=== PATIENT | female | born 1980 | race Caucasian/White ===

== ENCOUNTER 2023-02-13 07:44 | Day surgery (SDC) | payer MEDICAID ==
[~2023-02-13] VITALS: Ht 157.5 cm; Wt 64.9 kg
[2023-02-13 08:16] LABS: HCG,QUAL RESULT NEGATIVE (NEGATIVE)
[2023-02-13] MEDS ORDERED: MEPERIDINE 100 MG INJ. 100 MG/ML VIAL ONE (08:19)
[2023-02-13] MEDS ORDERED: MIDAZOLAM HCL 5 MG/5 ML VIAL ONE (08:19)
[2023-02-13 14:37] VITALS: BP_SYST 130
== END 2023-02-13 11:10 | disposition home or self-care (01) ==
LOC: SDS 07:44 → SMU 07:45 → SDS 11:10
PROVIDERS: ATTEND Internal Medicine Gastroenterology
DX: R19.5 Other fecal abnormalities (principal); K57.30 Diverticulosis of large intestine without perforation or abscess without bleeding; K64.8 Other hemorrhoids; Z79.899 Other long term (current) drug therapy
CPT/HCPCS: 45378; 84703; 99152; G0378; J2250; J2175